=== PATIENT | female | born 1990 | race Caucasian/White ===

== ENCOUNTER 2019-08-20 10:21 | Emergency (ER) | payer OTHER ==
[2019-08-20 11:41] LABS: Absolute Lymphocytes (CBC) 2.5 K/uL (0.7-4.9); Basophils % 0.8 % (0-1.3); Hematocrit 37.8 % (36.0-45.0); Lymphocytes % 33.2 % (15.3-44.8); MPV 9.4 fL (7.6-11.3); RBC Red Blood Cell Count 4.41 M/uL (3.86-4.86)
[2019-08-20] MEDS ORDERED: dexAMETHasone 10 MG/ML VIAL ONE (11:47)
[2019-08-20] MEDS ORDERED: METOCLOPRAMIDE 10 MG/2mL INJ ONE (11:47)
[2019-08-20] MEDS ORDERED: NA CHLORIDE 0.9% 1,000 ML ONE (11:47)
[2019-08-20] MEDS ORDERED: MEPERIDINE HCL 25 MG/0.5 ML ONE (11:47)
--- NOTE | 2019-08-20 12:00 | RAD REPORT ---
EXAM DESCRIPTION: CT - Head Brain Wo Cont - 08/20/2019 11:44 am CLINICAL HISTORY: Headache COMPARISON: None. TECHNIQUE: Computed axial tomography of the head was obtained. IV contrast was not requested. All CT scans are performed using dose optimization technique as appropriate and may include automated exposure control or mA/KV adjustment according to patient size. FINDINGS: An intracranial bleed is not seen . The ventricles are normal in caliber. No extra-axial fluid collection is noted. Fluid within the sinuses/ mastoids is not seen. IMPRESSION: No acute intracranial abnormality is seen. If patient's symptoms persist MRI of the bra in would be recommended.
[2019-08-20 12:28] LABS: BUN Blood Urea Nitrogen 14 mg/dL (7-18); Bicarbonate 25 mmol/L (21-32); Glucose Level 101 mg/dL (74-106); Potassium 3.9 mmol/L (3.5-5.1); Sodium Level 138 mmol/L (136-145)
--- NOTE | 2019-08-20 13:21 | ER ---
Nurse's Notes [facility] Name: Kristin Burgos Age: 29 yrs Sex: Female : 1990 Arrival Date: 08/20/2019 Time: 10:23 Bed 16 Private MD: Diagnosis: Migraine, unspecified;Urinary tract infection, site not specified Presentation: 08/20 10:41 Presenting complaint: Intermittent headache, blurry vision, dizziness, numbness and hb tingling of tongue and lips x 3 days. VAN Negative. Transition of care: patient was not received from another setting of care. Onset of symptoms was August 17, 2019. Risk Assessment: Do you want to hurt yourself or someone else? Patient reports no desire to harm self or others. Initial Sepsis Screen: Does the patient meet any 2 criteria? No. Patient's initial sepsis screen is negative. Does the patient have a suspected source of infection? No. Patient's initial sepsis screen is negative. Care prior to arrival: None. 10:41 Method Of Arrival: Ambulatory 10:41 Acuity: CHANTAL 3 hb Triage Assessment: 11:33 General: Appears in no apparent distress. Behavior is calm, cooperative, appropriate for age. 11:33 Headache History: The patient has had previous headaches and this one is different than previous episodes, and this one is more severe than previous episodes. 11:36 Pain: Also complains of inability to concentrate. 11:36 Pain: Pain began ON and off for 2 weeks. 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 - Social history:: Smoking status: Patient/guardian denies using tobacco. - Ebola Screening: : No symptoms or risks identified at this time. - Family history:: not pertinent. - Hospitalizations: : No recent hospitalization is reported. Screenin:32 Abuse screen: Denies threats or abuse. Denies injuries from another. Nutritional wh screening: No deficits noted. Tuberculosis screening: No symptoms or risk factors identified. Fall Risk None identified. Assessment: 11:34 General: Appears in no apparent distress. Behavior is calm, cooperative, appropriate wh for age. Pain: Complains of pain in head Pain does not radiate. Pain currently is 8 out of 10 on a pain scale. Neuro: Level of Consciousness is awake, alert, obeys commands, Oriented to person, place, time, situation, Appropriate for age Mechanical Estimator are equal bilaterally Moves all extremities. Reports blurred vision dizziness, headache parietal area, frontal area, occipital area. Cardiovascular: Heart tones S1 S2. Respiratory: Airway is patent Respiratory effort is even, unlabored, Respiratory pattern is regular, symmetrical. GI: Abdomen is flat, non-distended. : No signs and/or symptoms were reported regarding the genitourinary system. EENT: No signs and/or symptoms were reported regarding the EENT system. Derm: Skin is intact, is healthy with good turgor, Skin is pink, warm \T\ dry. normal. Musculoskeletal: Circulation, motion, and sensation intact. 12:39 Reassessment: Patient appears in no apparent distress at this time. Patient and/or wh family updated on plan of care and expected duration. Pain level reassessed. Patient is alert, oriented x 3, equal unlabored respirations, skin warm/dry/pink. Vital Signs: 10:42 BP 155 / 107; Pulse 78; Resp 16; Temp 98.3; Pulse Ox 100% on R/A; Weight 81.65 kg; hb Height 5 ft. 1 in. (154.94 cm); Pain 7/10; 11:37 BP 117 / 83; Pulse 75; Resp 18; Pulse Ox 99% on R/A; wh 12:40 BP 114 / 87; Pulse 74; Resp 18; Pulse Ox 99% on R/A; wh 10:42 Body Mass Index 34.01 (81.65 kg, 154.94 cm) hb [place] Coma Score: 13:19 Eye Response: spontaneous(4). Verbal Response: oriented(5). Motor Response: obeys rn commands(6). Total: 15. ED Course: 10:23 Patient arrived in ED. rg4 10:42 Triage completed. hb 10:45 Arm band placed on. hb 10:47 Noe Enciso MD is Attending Physician. rn 10:53 Morenita Maza is Primary Nurse. wh 10:59 Patient has correct armband on for positive identification. Bed in low position. Call [facility] light in reach. Adult w/ patient. Pulse ox on. NIBP on. 10:59 Urine collected: clean catch specimen, clear. [facility] 11:28 Urine Dipstick--Ancillary (enter results) Sent. 5 11:37 Missed attempt(s): 22 gauge in right upper arm. Bleeding controlled, band aid applied, catheter tip intact. 11:41 Missed attempt(s): 22 gauge in left antecubital area. 5 11:45 CT Head Brain wo Cont In Process Unspecified. EDMS 12:10 Inserted saline lock: 22 gauge in right antecubital area, using aseptic technique. Blood collected. by Rita Strauss RN. 13:27 No provider procedures requiring assistance completed. IV discontinued, intact, bleeding controlled, No redness/swelling at site. Administered Medications: 12:31 Drug: Decadron - Dexamethasone 10 mg Route: IVP; Site: right upper arm; 13:30 Follow up: Response: No adverse reaction 12:31 Drug: Demerol 25 mg {Note: RASS 0.} Route: IVP; Site: right upper arm; 13:30 Follow up: Response: No adverse reaction; Pain is decreased; RASS: Alert and Calm (0) 12:32 Drug: NS 0.9% 1000 ml Route: IV; Rate: 1000 ml; Site: right upper arm; 13:29 Follow up: Response: No adverse reaction; IV Status: Completed infusion 12:32 Drug: Reglan 10 mg Route: IVP; Site: right upper arm; 13:30 Follow up: Response: No adverse reaction; Nausea is decreased Outcome: 13:20 Discharge ordered by . rn 13:29 Discharged to home ambulatory, with family. 13:29 Condition: good 13:29 Discharge instructions given to patient, Instructed on discharge instructions, follow up and referral plans. safe sex practices, POC Migraine and UTI Demonstrated understanding of instructions, follow-up care, medications, POC Prescriptions given X 1. 13:30 Patient left the ED. Signatures: Dispatcher [employer] EDMS Noe Enciso MD MD rn Baxter, Heather, RN RN hb Garcia, Rubi rg4 Pat Malik [facility] Morenita Maza Corrections: (The following items were deleted from the chart) 10:44 10:41 Presenting complaint: Intermittent blurry vision, dizziness, numbness and hb tingling of tongue and lips x 3 days. VAN Negative hb
--- NOTE | 2019-08-20 13:21 | EDPHYS ---
Physician Documentation [facility] Name: Kristin Burgos Age: 29 yrs Sex: Female : 1990 Arrival Date: 08/20/2019 Time: 10:23 Bed 16 Private MD: ED Physician Noe Enciso HPI: 08/20 11:42 This 29 yrs old Female presents to ER via Ambulatory with complaints of rn Vision Problem, Dizziness, Headache. 11:42 The patient complains of pain to the forehead. The patient describes the headache as rn aching. Onset: The symptoms/episode began/occurred 2 week(s) ago. Associated signs and symptoms: Pertinent positives: nausea, blurred vision, Pertinent negatives: altered mental status, fever, neck stiffness, rash, vision loss, vertigo. Severity of symptoms: At its worst the pain was moderate, in the emergency department the pain is unchanged. The symptoms are alleviated by nothing. the symptoms are aggravated by nothing. The patient has experienced similar episodes in the past. Reports hx of migraines when younger, now for last 2 weeks has been having headaches, seen at [facility], told was dehydrated, headaches have been happening daily since then, now assoc with tingling of numbness of tongue and intermittent blurred vision. No head injury. No fever. NO famhx or personal hx of brain tumor or aneurysm. Has appt with neuro coming up but in a few weeks so wanted 2nd opinion. Also has appt on Sunday with ophthalmology. . 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 - Social history:: Smoking status: Patient/guardian denies using tobacco. - Ebola Screening: : No symptoms or risks identified at this time. - Family history:: not pertinent. - Hospitalizations: : No recent hospitalization is reported. ROS: 11:42 Constitutional: Negative for fever, chills, and weight loss, Eyes: Negative for injury, rn pain, redness, and discharge, ENT: Negative for injury, pain, and discharge, Neck: Negative for injury, pain, and swelling, Cardiovascular: Negative for chest pain, palpitations, and edema, Respiratory: Negative for shortness of breath, cough, wheezing, and pleuritic chest pain, Abdomen/GI: Negative for abdominal pain, vomiting, diarrhea, and constipation, MS/Extremity: Negative for injury and deformity, Skin: Negative for injury, rash, and discoloration, Neuro: Negative for weakness, and seizure. Exam: 11:42 Constitutional: This is a well developed, well nourished patient who is awake, alert, rn and in no acute distress. Ambulatory to room. Sits upright with legs crossed in bed. Head/Face: Normocephalic, atraumatic. Eyes: Pupils equal round and reactive to light, extra-ocular motions intact. Lids and lashes normal. Conjunctiva and sclera are non-icteric and not injected. Cornea within normal limits. Periorbital areas with no swelling, redness, or edema. ENT: MMM Neck: Trachea midline, no thyromegaly or masses palpated, and no cervical lymphadenopathy. Supple, full range of motion without nuchal rigidity, or vertebral point tenderness. No Meningismus. Cardiovascular: Regular rate and rhythm. No pulse deficits. Respiratory: No increased work of breathing, no retractions or nasal flaring. Abdomen/GI: soft, non-tender MS/ Extremity: Pulses equal, no cyanosis. Neurovascular intact. Full, normal range of motion. Equal circumference. Neuro: Awake and alert, GCS 15, oriented to person, place, time, and situation. No facial droop, equal. Motor strength 5/5 in all extremities. Sensory grossly intact. Cerebellar exam normal. Vital Signs: 10:42 BP 155 / 107; Pulse 78; Resp 16; Temp 98.3; Pulse Ox 100% on R/A; Weight 81.65 kg; hb Height 5 ft. 1 in. (154.94 cm); Pain 7/10; 11:37 BP 117 / 83; Pulse 75; Resp 18; Pulse Ox 99% on R/A; wh 12:40 BP 114 / 87; Pulse 74; Resp 18; Pulse Ox 99% on R/A; wh 10:42 Body Mass Index 34.01 (81.65 kg, 154.94 cm) hb [place] Coma Score: 13:19 Eye Response: spontaneous(4). Verbal Response: oriented(5). Motor Response: obeys rn commands(6). Total: 15. MDM: 10:47 Patient medically screened. rn 13:19 Differential diagnosis: hypertensive headache, migraine, neoplasm, tension headache, rn trigeminal neuralgia, vasomotor headache. Data reviewed: vital signs, nurses notes, lab test result(s), radiologic studies, CT scan, and as a result, I will discharge patient. Counseling: I had a detailed discussion with the patient and/or guardian regarding: the historical points, exam findings, and any diagnostic results supporting the discharge/admit diagnosis, lab results, radiology results, the need for outpatient follow up, to return to the emergency department if symptoms worsen or persist or if there are any questions or concerns that arise at home. Response to treatment: the patient's symptoms have markedly improved after treatment, and as a result, I will discharge patient. Special discussion: I discussed with the patient/guardian in detail that at this point there is no indication for admission to the hospital. It is understood, however, that if the symptoms persist or worsen the patient needs to return immediately for re-evaluation. Based on the history and exam findings, there is no indication for further emergent testing or inpatient evaluation. I discussed with the patient/guardian the need to see the neurologist for further evaluation of the symptoms. I discussed with the patient/guardian the need to see the opthamologist for further evaluation of the symptoms. ED course: Pt improved, sleeping, no acute findings on ct head or bloodwork, 3+ leukocytes, will treat for UTI. Has ophtho and neuro f/u. . 08/20 11:11 Order name: CBC with Diff; Complete Time: 12:36 rn 08/20 11:11 Order name: Basic Metabolic Panel; Complete Time: 12:36 rn 08/20 11:11 Order name: CT Head Brain wo Cont; Complete Time: 12:36 rn 08/20 11:11 Order name: [place] Screen Profile; Complete Time: 12:36 rn 08/20 11:19 Order name: Urine Dipstick--Ancillary (enter results) 08/20 11:11 Order name: IV Start; Complete Time: 11:38 rn 08/20 11:11 Order name: Urine Test (obtain specimen); Complete Time: 11:29 rn 08/20 11:11 Order name: Urine Dipstick-Ancillary (obtain specimen); Complete Time: 11:29 rn Administered Medications: 12:31 Drug: Decadron - Dexamethasone 10 mg Route: IVP; Site: right upper arm; 13:30 Follow up: Response: No adverse reaction 12:31 Drug: Demerol 25 mg {Note: RASS 0.} Route: IVP; Site: right upper arm; 13:30 Follow up: Response: No adverse reaction; Pain is decreased; RASS: Alert and Calm (0) 12:32 Drug: NS 0.9% 1000 ml Route: IV; Rate: 1000 ml; Site: right upper arm; 13:29 Follow up: Response: No adverse reaction; IV Status: Completed infusion 12:32 Drug: Reglan 10 mg Route: IVP; Site: right upper arm; 13:30 Follow up: Response: No adverse reaction; Nausea is decreased Disposition: 08/20/19 13:20 Discharged to Home. Impression: Migraine, unspecified, Urinary tract infection, site not specified. - Condition is Stable. - Discharge Instructions: Migraine Headache, Urinary Tract Infection, Adult. - Prescriptions for Macrobid 100 mg Oral Capsule - take 1 capsule by ORAL route every 12 hours for 7 days; 14 capsule. - Medication Reconciliation Form, Thank You Letter, Antibiotic Education, Prescription Opioid Use form. - Follow up: Private Physician; When: As needed; Reason: Recheck today's complaints, Re-evaluation by your physician. - Problem is new. - Symptoms have improved. Signatures: Dispatcher [employer] EDMS Noe Enciso MD MD rn Baxter, Heather, RN RN hb Habalo, Winsy Corrections: (The following items were deleted from the chart) 11:49 11:42 Constitutional: This is a well developed, well nourished patient who is awake, rn alert, and in no acute distress. Ambulatory to room. Sits upright with legs crossed in bed. Head/Face: Normocephalic, atraumatic. Eyes: Pupils equal round and reactive to light, extra-ocular motions intact. Lids and lashes normal. Conjunctiva and sclera are non-icteric and not injected. Cornea within normal limits. Periorbital areas with no swelling, redness, or edema. rn 13:30 13:20 08/20/2019 13:20 Discharged to Home. Impression: Migraine, unspecified; Urinary wh tract infection, site not specified. Condition is Stable. Forms are Medication Reconciliation Form, Thank You Letter, Antibiotic Education, Prescription Opioid Use. Follow up: Private Physician; When: As needed; Reason: Recheck today's complaints, Re-evaluation by your physician. Problem is new. Symptoms have improved. rn
[2019-08-20 13:36] VITALS: O2SAT 99
[2019-08-20 13:38] VITALS: BP 114/87
[2019-08-20 14:04] VITALS: TEMP 97.5
[2019-08-20 14:16] LABS: Urine Blood TRACE (NEG); Urine Glucose NEGATIVE (NEG); Urine Protein NEGATIVE (NEG); Urine Specific Gravity 1.025 (1.005-1.030); Urine pH 6.5 (5.0-7.0)
== END 2019-08-20 13:30 | disposition home or self-care (01) ==
LOC: ER 10:21
DX: G43.909 Migraine, unspecified, not intractable, without status migrainosus (principal); N39.0 Urinary tract infection, site not specified
CPT/HCPCS: 96361; 85025; 80048; 36415; 86308; 81003; 70450; 96375; 96374; 99284; J2765; J1100; J2175; J7030

== ENCOUNTER 2020-08-09 09:03 | Emergency (ER) | payer BC, OTHER ==
--- NOTE | 2020-08-09 09:42 | RAD REPORT ---
EXAM DESCRIPTION: CT - [id number] - 08/09/2020 9:23 am CLINICAL HISTORY: Trauma, head and neck injury. PAIN COMPARISON: No comparisons TECHNIQUE: Axial 5 mm thick images of the head were obtained. Axial 2 mm thick images of the cervical spine were obtained with sagittal and coronal reconstruction images generated and reviewed. All CT scans are performed using dose optimization technique as appropriate and may include automated exposure control or mA/KV adjustment according to patient size. FINDINGS: CT HEAD WITHOUT CONTRAST: No acute hemorrhage, hydrocephalus or extra-axial collection is identified.No areas of brain edema or midline shift. The paranasal sinuses and mastoids are clear.The calvarium is intact. Small left posterior scalp dell mason. CT CERVICAL SPINE WITHOUT CONTRAST: No fracture or subluxation.No prevertebral soft tissues swelling is identified. IMPRESSION: No acute intracranial or cervical spine findings.
[2020-08-09] MEDS ORDERED: PROMETHAZINE INJ 25 MG/ML AMP ONE (09:56)
[2020-08-09] MEDS ORDERED: MORPHINE 4 MG/ML SYR ONE (09:57)
--- NOTE | 2020-08-09 10:24 | ER ---
Nurse's Notes [facility] Name: Kristin Burgos Age: 30 yrs Sex: Female : 1990 Arrival Date: 08/09/2020 Time: 09:00 Bed 6 Private MD: Diagnosis: Fall on same level from slipping, tripping and stumbling;Superficial injury of unspecified part of head;Strain of muscle, fascia and tendon at neck level Presentation: 08/09 09:00 Chief complaint: EMS states: SLIP AND FALL ON WATER AT [employer]. Coronavirus screen: bp At this time, the client does not indicate any symptoms associated with coronavirus-19. Ebola Screen: No symptoms or risks identified at this time. Initial Sepsis Screen: Does the patient meet any 2 criteria? No. Patient's initial sepsis screen is negative. Does the patient have a suspected source of infection? No. Patient's initial sepsis screen is negative. Risk Assessment: Do you want to hurt yourself or someone else? Patient reports no desire to harm self or others. Onset of symptoms is unknown. 09:00 Method Of Arrival: EMS: [facility] bp 09:00 Acuity: CHANTAL 4 bp Triage Assessment: :02 General: Appears distressed, uncomfortable, Behavior is cooperative, appropriate for bp age, anxious. Pain: Complains of pain in back of head and back of neck. EENT: No deficits noted. Neuro: No deficits noted. Cardiovascular: No deficits noted. Respiratory: No deficits noted. GI: No signs and/or symptoms were reported involving the gastrointestinal system. : No signs and/or symptoms were reported regarding the genitourinary system. Derm: No deficits noted. Musculoskeletal: No deficits noted. Historical: - Allergies: : No Known Allergies; bp - Home Meds: 09:02 Trileptal oral oral [Active]; Diazepam Oral [Active]; levothyroxine oral [Active]; bp - PMHx: 09: Bipolar disorder; Depression; bp - Immunization history:: Adult Immunizations up to date. - Social history:: Smoking status: unknown. Screenin:03 Abuse screen: Denies threats or abuse. Denies injuries from another. Nutritional bp screening: No deficits noted. Tuberculosis screening: No symptoms or risk factors identified. Fall Risk None identified. Assessment: 09:03 General: SEE TRIAGE NOTE. bp 09:17 Reassessment: PT TO CT. bp 10:00 Reassessment: C-COLLAR CLEARED BY LMP, PT REMAINS NEURO INTACT. bp 10:42 Reassessment: provider at bedside. em 10:50 Reassessment: PT D/C HOME AMBULATORY, DX WITH FALL AND SUPERFICIAL HEAD INJURY. bp Vital Signs: 09:00 BP 130 / 80; Pulse 70; Resp 17; Temp 98.1; Pulse Ox 99% ; bp 10:15 BP 128 / 102; Pulse 76; Resp 16; Pulse Ox 100% ; bp 10:50 BP 140 / 103; Pulse 81; Resp 16; Temp 98; Pulse Ox 100% ; bp ED Course: 09:00 Patient arrived in ED. bp 09:00 Marcelino Chapman NP is PHCP. pm1 09:00 Noe Enciso MD is Attending Physician. pm1 09:01 Triage completed. bp 09:02 Arm band placed on. bp 09:03 Patient has correct armband on for positive identification. Bed in low position. Call bp light in reach. Side rails up X2. 09:17 Antonio Patel, RN is Primary Nurse. bp 09:23 CT Head C Spine In Process Unspecified. EDMS 10:51 No provider procedures requiring assistance completed. Patient did not have IV access bp during this emergency room visit. Administered Medications: 09:45 Drug: morphine 4 mg Route: IM; Site: left deltoid; bp 10:52 Follow up: Response: Pain is decreased bp 09:45 Drug: Phenergan 25 mg Route: IM; Site: left deltoid; bp 10:52 Follow up: Response: No adverse reaction bp Outcome: 10:23 Discharge ordered by . pm1 10:51 Discharged to home ambulatory. bp 10:51 Condition: stable 10:51 Discharge instructions given to patient, Instructed on discharge instructions, follow up and referral plans. medication usage, Demonstrated understanding of instructions, follow-up care, medications, Prescriptions given X 1. 11:26 Patient left the ED. dm5 Signatures: Dispatcher [employer] Jamilah Mckinney RN RN dm5 Mohamud Figueroa RN RN em Marcelino Chapman NP [employer] pm1 Antonio Patel, RN RN bp
--- NOTE | 2020-08-09 10:24 | EDPHYS ---
Physician Documentation [facility] Name: Kristin Burgos Age: 30 yrs Sex: Female : 1990 Arrival Date: 08/09/2020 Time: 09:00 Bed 6 Private MD: ED Physician Noe Enciso HPI: 08/09 09:25 This 30 yrs old Female presents to ER via EMS with complaints of Fall Injury. pm1 09:25 Details of fall: The patient fell from an upright position, while walking. Onset: The pm1 symptoms/episode began/occurred just prior to arrival. Associated injuries: The patient sustained injury to the head, pain, neck injury, pain. The patient has not experienced similar symptoms in the past. The patient has not recently seen a physician. Patient was walking at the gas station and slipped on water. Hit the back of her head. Presenting with headache to left occipital area and neck pain. No LOC. Historical: - Allergies: 09:02 No Known Allergies; bp - Home Meds: 09:02 Trileptal oral oral [Active]; Diazepam Oral [Active]; levothyroxine oral [Active]; bp - PMHx: 09:02 Bipolar disorder; Depression; bp - Immunization history:: Adult Immunizations up to date. - Social history:: Smoking status: unknown. ROS: 09:25 Constitutional: Negative for fever, chills, and weight loss. pm1 09:25 Cardiovascular: Negative for chest pain, palpitations, and edema, Respiratory: Negative for shortness of breath, cough, wheezing, and pleuritic chest pain. 09:25 Abdomen/GI: Negative for abdominal pain, nausea, vomiting, diarrhea, and constipation, Back: Negative for injury and pain, MS/Extremity: Negative for injury and deformity, Skin: Negative for injury, rash, and discoloration. 09:25 Neck: Positive for Pain. 09:25 Neuro: Positive for headache, Negative for numbness, tingling, weakness. Exam: 09:27 Constitutional: This is a well developed, well nourished patient who is awake, alert, pm1 and in no acute distress. 09:27 Eyes: Pupils equal round and reactive to light, extra-ocular motions intact. Lids and lashes normal. Conjunctiva and sclera are non-icteric and not injected. Cornea within normal limits. Periorbital areas with no swelling, redness, or edema. 09:27 Back: No spinal tenderness. No costovertebral tenderness. Full range of motion. Skin: Warm, dry with normal turgor. Normal color with no rashes, no lesions, and no evidence of cellulitis. MS/ Extremity: Pulses equal, no cyanosis. Neurovascular intact. Full, normal range of motion. 09:27 Head/face: Exam is negative for deformity, Noted is no obvious of injury or deformity except tenderness, that is mild, of the left occipital area. 09:27 ENT: External ear(s): are unremarkable, Ear canal(s): are normal, clear, no bleeding, no bloody discharge, TM's: rupture, is not appreciated. 09:27 Neck: External neck: tenderness, that is mild, of the occiput. 09:27 Cardiovascular: Exam negative for acute changes, Rate: normal, Rhythm: regular, Pulses: no pulse deficits are appreciated. 09:27 Respiratory: Exam negative for acute changes, respiratory distress, shortness of breath. 09:27 Neuro: Exam negative for acute changes, Orientation: is normal, Mentation: is normal, Motor: is normal, moves all fours, Sensation: is normal, no obvious gross deficits. Vital Signs: 09:00 BP 130 / 80; Pulse 70; Resp 17; Temp 98.1; Pulse Ox 99% ; bp 10:15 BP 128 / 102; Pulse 76; Resp 16; Pulse Ox 100% ; bp 10:50 BP 140 / 103; Pulse 81; Resp 16; Temp 98; Pulse Ox 100% ; bp MDM: 09:09 Patient medically screened. pm1 09:39 Data reviewed: vital signs. Data interpreted: Pulse oximetry: on room air is 99 %. pm1 Interpretation: normal. 10:21 Counseling: I had a detailed discussion with the patient and/or guardian regarding: the pm1 historical points, exam findings, and any diagnostic results supporting the discharge/admit diagnosis, radiology results, the need for outpatient follow up, to return to the emergency department if symptoms worsen or persist or if there are any questions or concerns that arise at home. 08/09 09:01 Order name: CT Head C Spine; Complete Time: 09:53 pm1 Administered Medications: 09:45 Drug: morphine 4 mg Route: IM; Site: left deltoid; bp 10:52 Follow up: Response: Pain is decreased bp 09:45 Drug: Phenergan 25 mg Route: IM; Site: left deltoid; bp 10:52 Follow up: Response: No adverse reaction bp Disposition: 13:15 Co-signature as Attending Physician, Noe Enciso MD. rn Disposition: 08/09/20 10:23 Discharged to Home. Impression: Fall on same level from slipping, tripping and stumbling, Superficial injury of unspecified part of head, Strain of muscle, fascia and tendon at neck level. - Condition is Stable. - Discharge Instructions: Head Injury, Adult, Muscle Strain. - Prescriptions for Diclofenac Sodium 75 mg Oral Tablet Sustained Release - take 1 tablet by ORAL route 2 times per day; 30 tablet. - Work release form, Medication Reconciliation Form, Thank You Letter, Antibiotic Education, Prescription Opioid Use form. - Follow up: Emergency Department; When: As needed; Reason: Worsening of condition. Follow up: Private Physician; When: 2 - 3 days; Reason: Recheck today's complaints, Continuance of care, Re-evaluation by your physician. - Problem is new. - Symptoms have improved. Signatures: Dispatcher [employer] EDMS Jamilah Díaz RN RN dm5 Noe Enciso MD MD rn Marinas, Patrick, [employer]SM[employer]ATIONS ANALYST pm1 Antonio Patel RN RN bp Corrections: (The following items were deleted from the chart) 11:26 10:23 08/09/2020 10:23 Discharged to Home. Impression: Fall on same level from dm5 slipping, tripping and stumbling; Superficial injury of unspecified part of head; Strain of muscle, fascia and tendon at neck level. Condition is Stable. Forms are Medication Reconciliation Form, Thank You Letter, Antibiotic Education, Prescription Opioid Use. Follow up: Emergency Department; When: As needed; Reason: Worsening of condition. Follow up: Private Physician; When: 2 - 3 days; Reason: Recheck today's complaints, Continuance of care, Re-evaluation by your physician. Problem is new. Symptoms have improved. pm1
--- OUTSIDE RECORDS SUMMARY | 2020-08-09 10:29 | XMS REPORT | Continuity of Care Document ---
:1990 Author Organization [facility] t Address [address] [place] [address] Care Team Providers Name Role Phone Hipolito Church Attending Clinician Doctor Unassigned, Name Attending Clinician Unavailable Ana M Villatoro Attending Clinician Len Attending Clinician 1, Lab Attending Clinician Unavailable Problems This patient has no known problems. Allergies, Adverse Reactions, Alerts This patient has no known allergies or adverse reactions. Medications This patient has no known medications. Procedures This patient has no known procedures. Encounters Start End Encounter Admission Attending Care Care Encounter Source Date/Time Date/Time Type Type Clinicians Facility Department ID 2020-07-06 2020-07-06 Emergency KIMMIE Hendrix [id number] 14:51:00 15:26:00 Tiffanie Mccarthy [id number] [place] [id number] [place] [id number] 2020-07-06 2020-07-06 Orders Doctor BRAXTON [id number] 00:00:00 00:00:00 Only UnassignedJANIS [id number] [place] [facility] [id number] 2019-08-08 2019-08-08 Emergency Felix Mahajan [id number] 11:16:04 14:10:00 Ana M Mccarthy [id number] [place] [id number] [place] [id number] 2019-08-08 2019-08-08 Orders Doctor BRAXTON [id number] 00:00:00 00:00:00 Only Unassigned, JANIS [id number] [place] [address] [id number] 2019-06-24 2019-06-24 [place] [id number] 14:16:12 23:59:00 Encounter Ashley Mccarthy [id number] [place] [id number] [place] [id number] 2019-06-24 2019-06-24 Machine Mover 1, Adc Lab [id number] 13:51:46 14:06:46 Visit [place] [id number] [place] [id number] [place] [id number] 2019-06-24 2019-06-24 Orders Doctor BRAXTON [id number] 00:00:00 00:00:00 Only Unassigned, JANIS [id number] [place] [address]686 [id number] Results This patient has no known results.
--- OUTSIDE RECORDS SUMMARY | 2020-08-09 10:30 | XMS REPORT | Summary of Care ---
:1990 Author Organization [facility] - [facility] Address [address] [place] [id number] Care Team Providers Name Role Phone Len Primary Care Provider Reason for Visit Reason Comments Other pelvic pain Leg Pain Auth/Cert Status Reason Specialty Diagnoses / Referred By Referred To Procedures Contact Contact Emergency Medicine Diagnoses PELVIC PAIN;LEG PAIN [facility] Emergency Dept [address] [place] [phone] Fax: Encounter Details Date Type Department Care Team Description 07/06/2020 Emergency [facility]-Emergency Tiffanie Hendrix, LLOYD Pelvic pain (Primary Department [address] [place]) [address] [place] [address] [phone] [place] [id number] [phone] Allergies No Known Allergiesdocumented as of this encounter (statuses as of 07/06/2020) Medications Medication Sig Dispensed Refills Start Date End Date Status ZIPRASIDONE HCL (GEODON Take 40 mg by 0 Active ORAL) mouth. LEVOTHYROXINE SODIUM Take 125 mcg by 0 Active (SYNTHROID ORAL) mouth. ZOLPIDEM TARTRATE Take 10 mg by 0 Active (AMBIEN ORAL) mouth. FLUoxetine (PROZAC) 10 Take 30 mg by 0 Active mg capsule mouth daily. cyclobenzaprine 5 mg Take 1 tablet by 30 tablet 0 07/29/2017 Active tablet mouth 3 (three) times daily. methylPREDNISolone Take by mouth 21 Each 0 11/07/2017 Active (MEDROL, RITU,) 4 mg SEE-INSTRUCTIONS. tablets follow package directions mupirocin (BACTROBAN) 2 Apply to area(s) 22 g 0 08/07/20 18 Active % ointment 3 (three) times daily. ondansetron (ZOFRAN Take 1 tablet by 20 tablet 0 01/23/2019 Active ODT) 4 mg mouth every 8 disintegrating (eight) hours as tabletIndications: needed for Nausea Flu-like symptoms and Vomiting (N/V). traMADOL (ULTRAM) 50 mg Take 1 tablet by 15 tablet 0 9 Active tabletIndications: mouth every 6 Flu-like symptoms (six) hours as needed for Pain (scale 4-6). benzonatate 100 mg Take 1 capsule by 14 capsule 0 11/11/2019 Active capsuleIndications: mouth 3 (three) Influenza B times daily as needed for Cough. proMETHazine 25 mg Take 1 tablet by 12 tablet 0 11/13/2019 Active tabletIndications: mouth every 6 Nausea and vomiting in (six) hours as adult, Influenza B needed for Nausea and Vomiting (N/V) or N/V unresponsive to Ondansetron. ibuprofen 800 mg Take 1 tablet by 21 tablet 0 11/13/2019 Active tabletIndications: mouth every 8 Nausea and vomiting in (eight) hours as adult, Influenza B needed for Pain (scale 4-6) or Temp > 38.5 C. benzonatate 200 mg Take 1 capsule by 21 capsule 0 11/13/2019 Active capsuleIndications: mouth 3 (three) Nausea and vomiting in times daily as adult, Influenza B needed for Cough. documented as of this encounter (statuses as of 07/06/2020) Active Problems Problem Noted Date Obesity (BMI 30-39.9) 10/25/2016 documented as of this encounter (statuses as of 07/06/2020) Immunizations Name Administration Dates Next Due Td 08/07/2018 documented as of this encounter Social History Tobacco Use Types Packs/Day Years Used Date Never Assessed Sex Assigned at Date Recorded Not on file COVID-19 Exposure Response Date Recorded In the last month, have you been in contact with No / Unsure 07/06/2020 3:09 PM CDT someone who was confirmed or suspected to have Coronavirus / COVID-19? documented as of this encounter Last Filed Vital Signs Vital Sign Reading Time Taken Comments Blood Pressure 136/81 07/06/2020 2:48 PM CDT Pulse 102 07/06/2020 2:48 PM CDT Temperature 37.4 C (99.3 F) 07/06/2020 2:48 PM CDT Respiratory Rate 20 07/06/2020 2:48 PM CDT Oxygen Saturation - - Inhaled Oxygen Concentration - - Weight 66.2 kg (146 lb) 07/06/2020 2:48 PM CDT Height - - Body Mass Index 25.86 08/07/2018 10:13 AM CDT documented in this encounter ED Notes Violette Villafuerte, RN - 07/06/2020 2:45 PM CDT29 year old female coming to the ER for lower groin pain on the right side went goes down her right upper side. Patient has a hx of tubal ligation and is concern because the pain increases around her cycle. Onset 2 weeks. documented in this encounter Miscellaneous Notes ED Nurse Note - Jackie Arriaga RN - 07/06/2020 3:19 PM CDTPatient leaving ambulatory with steady gait. documented in this encounter Plan of Treatment Name Type Priority Associated Diagnoses Order S chedule CBC WITH DIFF LAB Routine Pelvic pain ONCE for 1 Occ urrences starting 2019 until 07/06/2020 BASIC METABOLIC PANEL LAB Routine Pelvic pain ONCE f or 1 Occurrences (NA, K, CL, CO2, GLUCOSE, st arting 07/06/2020 until BUN, CREATININE, CA) 020 URINALYSIS LAB Routine Pelvic pain ONCE for 1 Occu rrences starting 2019 until 07/06/2020 POCT TEST LAB AHMET Pelvic pain ONCE for 1 Occurrences starting 2019 until 07/06/2020 Health Maintenance Due Date Last Done Comments VARICELLA VACCINES (1 of 2 - 1991 2-dose childhood series) Depression Screening 2002 DTaP,Tdap,and Td Vaccines (1 2009 08/07/2018 - Tdap) PAP SMEAR 2011 01/24/2008, 07/31/2006 INFLUENZA VACCINE (#1) 2020 PNEUMOCOCCAL 0-64 YEARS Aged Out No longe r eligible based COMBINED SERIES on patient's age to complete this to [facility] documented as of this encounter Procedures Procedure Name Priority Date/Time Associated Diagnosis Comme nts NOTICE OF PRIVACY Routine 07/06/2020 2:36 PM CDT PRACTICES documented in this encounter Results Not on filedocumented in this encounter Visit Diagnoses Diagnosis Pelvic pain - Primary Unspecified symptom associated with fema le genital organs documented in this encounter Additional Health Concerns Infection Onset Date Last Indicated Resolved Time Droplet - Seasonal Influenza 11/08/2017 11/08/2017 documented as of this encounter Insurance Payer Benefit Plan / Subscriber ID Effective Dates Phone Addre ss Type Group [facility] [id number] 2019-Present PPO [phone] [id number] (Work) documented as of this encounter Advance Directives Name Relationship Healthcare Agent Communication Relationship Elliott Burgos Spouse Health Care Agent
--- OUTSIDE RECORDS SUMMARY | 2020-08-09 10:30 | XMS REPORT | Summary of Care ---
:1990 Author Organization [facility] - Health Address [address] [place] [address] Care Team Providers Name Role Phone Harrington Primary Care Provider Encounter Details Date Type Department Care Team Description 07/06/2020 Orders Only [facility] Doctor Unassigned, No [address] [facility] [place] [address] [address] [place] [address] Allergies No Known Allergiesdocumented as of this [...] Assigned at Date Recorded Not on file documented as of this encounter Last Filed Vital Signs Not on filedocumented in this encounter Plan of Treatment Health Maintenance Due Date Last Done Comments VARICELLA VACCINES (1 of 2 - 1991 2-dose childhood series) Depression Screening 2002 DTaP,Tdap,and Td Vaccines (1 2009 08/07/2018 - Tdap) PAP SMEAR 2011 01/24/2008, 07/31/2006 INFLUENZA VACCINE (#1) 2020 PNEUMOCOCCAL 0-64 YEARS Aged Out No longe r eligible based COMBINED SERIES on patient's age to complete this to [facility] documented as of this encounter Procedures Procedure Name Priority Date/Time Associated Diagnosis Comme nts CONSENT/REFUSAL FOR Routine 07/06/2020 2:36 PM CDT DIAGNOSIS AND TREATMENT documented in this encounter Results Not on filedocumented in this encounter Additional Health Concerns Infection Onset Date Last Indicated Resolved Time Droplet - Seasonal Influenza 11/08/2017 11/08/2017 documented as of this encounter Insurance Payer Benefit Plan Subscriber ID Effective Dates Phone Address Type / Group [facility] [id number] 2010-[place] [phone] [address] PPO/POS [place] - OUT OF t [id number] [place] [address] documented as of this encounter Advance Directives Name Relationship Healthcare Agent Communication Relationship Elliott Burgos Spouse Health Care Agent
[2020-08-09 11:32] VITALS: O2SAT 100
[2020-08-09 11:33] VITALS: BP 140/103; TEMP 98
== END 2020-08-09 11:26 | disposition home or self-care (01) ==
LOC: ER 09:03
DX: S00.90XA Unspecified superficial injury of unspecified part of head, initial encounter (principal); S16.1XXA Strain of muscle, fascia and tendon at neck level, initial encounter; W01.0XXA Fall on same level from slipping, tripping and stumbling without subsequent striking against object, initial encounter; Y93.89 Activity, other specified; Y92.524 Gas station as the place of occurrence of the external cause
CPT/HCPCS: 70450; 72125; 96372; 99284; J2550